=== PATIENT | female | born 1980 | race Caucasian/White ===

== ENCOUNTER 2018-10-08 23:45 | Inpatient (IN) | payer OTHER ==
[2018-10-09] MEDS ORDERED: OXYTOCIN 30 UNITS/LR 500 ML IV ×2 (01:00)
[2018-10-09] MEDS ORDERED: MISOPROSTOL 200 MCG TAB PR (01:00)
[2018-10-09] MEDS ORDERED: BUTORPHANOL 2 MG INJ IV (01:00)
[2018-10-09] MEDS ORDERED: LIDOCAINE 1% (MPF) 30 ML INJ INJ (01:00)
[2018-10-09] MEDS ORDERED: CARBOPROST 250 MCG INJ IM (01:00)
[2018-10-09] MEDS ORDERED: METHYLERGONOVINE 0.2 MG INJ IM (01:00)
[2018-10-09] MEDS ORDERED: IBUPROFEN 600 MG TAB PO (01:00)
[2018-10-09] MEDS: LACTATED RINGER'S 1,000 ML IV ×3 (02:50→10:02)
[2018-10-09] MEDS: AMPICILLIN 2 GM/NS (PMX) 100 ML IV (02:51)
[2018-10-09 03:04] LABS: ADD MAN DIFF? NO
[2018-10-09 03:06] LABS: BASOPHILS % 0.3 % (0.0-2.0); EOSINOPHILS # 0.1 10^3/ul (0.0-0.5); EOSINOPHILS % 0.5 % (0.0-7.0); HEMATOCRIT 38.5 % (37.0-47.0); HEMOGLOBIN 12.8 g/dl (12.0-16.0); LYMPHOCYTES # 1.2 10^3/ul (0.8-2.9); LYMPHOCYTES % 13.3 % (15.0-51.0); MEAN CORPUSCULAR HEMOGLOBIN 30.2 pg (29.0-33.0); MEAN CORPUSCULAR HGB CONC 33.2 g/dl (32.0-37.0); MEAN CORPUSCULAR VOLUME 90.8 fl (82.0-101.0); MEAN PLATELET VOLUME 10.3 fl (7.4-10.4); MONOCYTE # 0.6 10^3/ul (0.3-0.9); MONOCYTES % 5.9 % (0.0-11.0); NEUTROPHIL # 7.4 10^3/ul (1.6-7.5); NEUTROPHILS % 79.2 % (39.0-77.0); PLATELET COUNT 168 10^3/UL (140-415); RED BLOOD COUNT 4.24 10^6/ul (4.20-5.40)
[2018-10-09 03:06] LABS: WHITE BLOOD COUNT 9.3 10^3/ul (4.8-10.8)
[2018-10-09 03:25] LABS: INR 0.84; PROTIME 11.6 Sec (11.9-14.9); PT RATIO 0.9
[2018-10-09 04:57] LABS: HEPATITIS B SURFACE ANTIGEN NEGATIVE (NEGATIVE)
[2018-10-09] MEDS: AMPICILLIN 1 GM/NS (PMX) 50 ML IV ×2 (06:48→10:13)
[2018-10-09] MEDS ORDERED: FENTAnyl 2MCG/ML-ROPIV 0.2% 100 ML BAG EPI (07:30)
[2018-10-09] MEDS ORDERED: NALOXONE (0.4 MG/ML) INJ IV (07:30)
[2018-10-09] MEDS: OXYTOCIN 30 UNITS/LR 500 ML IV ×3 (10:10→18:02)
[2018-10-09] MEDS ORDERED: ONDANSETRON 4 MG INJ IV (17:30)
[2018-10-09] MEDS ORDERED: HYDROCODONE/APAP (5/325) TAB PO (17:30)
[2018-10-09] MEDS ORDERED: OXYCODONE/ASPIRIN (4.88/325) TAB PO ×2 (17:30)
[2018-10-09] MEDS: WITCH HAZEL/GLYCERIN PAD PR (18:02)
[2018-10-09] MEDS: IBUPROFEN 600 MG TAB PO (18:02)
[2018-10-09] MEDS: BENZOCAINE 20% 56 ML SPRAY TOP (18:02)
[2018-10-09] MEDS: LANOLIN HPA 1 PKT TOP (18:04)
[2018-10-09] MEDS: SENNA/DOCUSATE NA (8.6MG/50MG) TAB PO (20:52)
[2018-10-09 21:38] LABS: RAPID PLASMA REAGIN NONREACTIVE (NR)
[2018-10-09] MEDS: HYDROCODONE/APAP (5/325) TAB PO (23:04)
[2018-10-10] MEDS: IBUPROFEN 600 MG TAB PO ×5 (00:04→23:46)
[2018-10-10 07:05] LABS: ADD MAN DIFF? NO
[2018-10-10 07:12] LABS: WHITE BLOOD COUNT 9.9 10^3/ul (4.8-10.8)
[2018-10-10 07:12] LABS: BASOPHILS % 0.4 % (0.0-2.0); EOSINOPHILS # 0.1 10^3/ul (0.0-0.5); EOSINOPHILS % 0.8 % (0.0-7.0); HEMATOCRIT 33.4 % (37.0-47.0); HEMOGLOBIN 10.9 g/dl (12.0-16.0); LYMPHOCYTES % 10.1 % (15.0-51.0); MEAN CORPUSCULAR HEMOGLOBIN 30.4 pg (29.0-33.0); MEAN CORPUSCULAR HGB CONC 32.6 g/dl (32.0-37.0); MEAN PLATELET VOLUME 10.5 fl (7.4-10.4); MONOCYTE # 0.5 10^3/ul (0.3-0.9); MONOCYTES % 5.2 % (0.0-11.0); NEUTROPHIL # 8.2 10^3/ul (1.6-7.5); NEUTROPHILS % 82.9 % (39.0-77.0); PLATELET COUNT 150 10^3/UL (140-415); RED BLOOD COUNT 3.59 10^6/ul (4.20-5.40); RED CELL DISTRIBUTION WIDTH 13.2 % (11.5-14.5)
[2018-10-10] MEDS: SENNA/DOCUSATE NA (8.6MG/50MG) TAB PO ×2 (09:11→21:00)
[2018-10-10] MEDS: ACETAMINOPHEN 325 MG TAB PO (13:19)
[2018-10-11] MEDS: IBUPROFEN 600 MG TAB PO ×2 (05:36→12:00)
[2018-10-11] MEDS: SENNA/DOCUSATE NA (8.6MG/50MG) TAB PO (09:00)
[2018-10-11] MEDS: MEASLES,MUMPS,RUBELLA VACCINE INJ SC* (09:00)
== END 2018-10-11 16:00 | disposition home or self-care (01) | DRG 807 ==
LOC: L-D 23:45 → OBT 23:45 → L-D 10-09 00:30 → PP1 10-09 16:39
PROVIDERS: Obstetrics & Gynecology
PROC: 10E0XZZ Delivery of Products of Conception, External Approach (ICD-10-PCS; principal; 2018-10-09)
PROC: 0HQ9XZZ Repair Perineum Skin, External Approach (ICD-10-PCS; 2018-10-09)
DX: O70.0 First degree perineal laceration during delivery (principal); Z37.0 Single live birth; Z3A.38 38 weeks gestation of pregnancy
CPT/HCPCS: 62319; 85025; 85610; 85730; 86592; 86850; 86900; 86901; 87340; 99464